=== PATIENT | male | born 1950 | race Caucasian/White ===

== ENCOUNTER → 2016-09-23 | Outpatient (CLI) | payer OTHER ==
[~2016-09-23] MED LIST: NAPR1TAB9 PO; TRAM-10 PO
--- NOTE | 2016-09-23 10:41 | DIAGNOSTIC IMAGING REPORT ---
HEAD CT NONCONTRAST CT DOSE: 614.27 mGy.cm HISTORY: R51 Headache Evaluate of Sub arachnoid [id number] TECHNIQUE: Multiaxial CT images of the head were performed without the use of intravenous contrast. Automated exposure control was utilized for this study. Comparison: None. Findings: Complete opacification of the visualized left maxillary sinus. There is partial opacification of the ethmoid air cells. The mastoid air cells are clear. The calvarium and skull base are intact. The ventricles and sulci are within normal limits. There is no mass, hematoma, midline shift, or acute infarct. Impression: No acute intracranial abnormality. Sinus disease as described above. Electronically signed by: Porter Flores M.D. 09/23/2016 10:39 AM
== END | disposition home or self-care (01) ==
LOC: C.CTS 10:19
PROVIDERS: ATTEND Nurse Practitioner Family
DX: R51 Headache (principal)

== ENCOUNTER → 2017-04-02 | Outpatient (CLI) | payer OTHER ==
--- NOTE | 2017-04-02 12:57 | DIAGNOSTIC IMAGING REPORT ---
ULTRASOUND EXAM AAA SCREEN CLINICAL HISTORY: 66 years-old Male presenting with tobacco use, aortic aneurysm screening. TECHNIQUE: Real-time grayscale and limited color Doppler ultrasound imaging of the abdominal aorta was performed through the level of the aortic bifurcation. COMPARISON: CT of the abdomen and pelvis from 11/02/2014. FINDINGS: Proximal aorta measures 1.9 x 1.9 cm. No significant atherosclerotic plaque. Mid aorta measures 1.7 x 1.7 cm. No significant atherosclerotic plaque. Distal aorta measures 1.6 x 1.8 cm. No significant atherosclerotic plaque. Bilateral common iliac arteries measures 0.9 cm in diameter. IMPRESSION: 1. No evidence of abdominal aortic aneurysm. Electronically signed by: Kar Estrella M.D. 04/02/2017 12:56 PM Dictated Date/Time: 04/02/2017 12:53 PM
== END | disposition home or self-care (01) ==
LOC: C.ULTR 11:38
PROVIDERS: ATTEND Family Medicine
DX: Z72.0 Tobacco use (principal)

== ENCOUNTER → 2017-07-19 | Outpatient (CLI) | payer OTHER | END | disposition home or self-care (01) | LOC: C.LAB1850 12:03 | PROVIDERS: ATTEND Urology | DX: C61 Malignant neoplasm of prostate (principal); C67.9 Malignant neoplasm of bladder, unspecified ==

== ENCOUNTER → 2018-01-12 | Outpatient (CLI) | payer OTHER ==
[~2018-01-12] MED LIST changes: +DOXE25CA2 PO
[2018-01-12 17:17] LABS: BASO % 0.6 %; BASO ABS # 0.06 K/uL (0-0.2); EOS % 4.1 %; EOS ABS # 0.38 K/uL (0-0.5); HEMATOCRIT 45.4 % (42-52); HEMOGLOBIN 15.7 g/dL (14.0-18.0); IG# 0.03 K/uL (0.00-0.02); LYMPH % 28.9 %; LYMPH ABS # 2.68 K/uL (1.2-3.4); MEAN CELL VOLUME 90.3 fL (80-100); MEAN CORPUSCULAR HEMOGLOBIN 31.2 pg (25-34); MEAN CORPUSCULAR HGB CONC 34.6 g/dl (32-36); MEAN PLATELET VOLUME 9.2 fL (7.4-10.4); MONO ABS # 0.83 K/uL (0.11-0.59); NEUT % 57.1 %; NEUT ABS # 5.28 K/uL (1.4-6.5); PLATELET COUNT 305 K/uL (130-400); RED CELL DISTRIBUTION WIDTH SD 42.5 fL (36.4-46.3); WHITE BLOOD COUNT 9.26 K/uL (4.8-10.8)
[2018-01-12 17:25] LABS: INR 0.9 (0.9-1.1)
[2018-01-12 19:13] LABS: ALBUMIN 3.8 gm/dl (3.4-5.0); ALT/SGPT 33 U/L (12-78); BLOOD UREA NITROGEN 19 mg/dl (7-18); CARBON DIOXIDE 27 mmol/L (21-32); CREATININE 0.98 mg/dl (0.60-1.40); GLUCOSE 84 mg/dl (70-99); SODIUM 138 mmol/L (136-145)
[2018-01-12 19:14] LABS: ALKALINE PHOSPHATASE 93 U/L (45-117); AST/SGOT 22 U/L (15-37); TOTAL PROTEIN 7.7 gm/dl (6.4-8.2)
== END | disposition home or self-care (01) ==
LOC: C.LAB1850 15:57
PROVIDERS: ATTEND Urology
DX: D69.2 Other nonthrombocytopenic purpura (principal); C67.9 Malignant neoplasm of bladder, unspecified

== ENCOUNTER 2018-01-14 09:10 | Emergency (ER) | payer OTHER ==
[~2018-01-14] VITALS: Ht 177.8 cm; Wt 74.5 kg
[~2018-01-14 09:10] MED LIST changes: -DOXE25CA2 PO
[2018-01-14 09:14] VITALS: TEMP 37; Ht 177.8 cm; Wt 74.5 kg
[2018-01-14] MEDS ORDERED: DOXE25CA2 PO (09:25)
--- NOTE | 2018-01-14 09:58 | EMERGENCY ROOM VISIT NOTE ---
History Report prepared by El: Haley Cantu Under the Supervision of: Dr. Darwin Ansari D.O. First contact with patient: 09:30 Chief Complaint: ARM PAIN Stated Complaint: L ARM PAIN,FAMILY HX OF HEART ATTACKS History of Present Illness The patient is a 67 year old male who presents to the Emergency Room with complaints of persistent left arm pain that began about an hour ago while he was on the computer. He reports that his pain worsens with movement, noting that it feels like a shooting pain near his elbow. The patient denies any chest pain or trouble breathing. He notes that he has been noticing some recent irritation around his wrists and arms which began about a week ago. Source of History: patient Onset: an hour ago Position: arm (left) Quality: other (arm pain) Timing: other (persistent) Associated Symptoms: No chest pain Note: Patient denies: trouble breathing. Review of Systems See HPI for pertinent positives & negatives. A total of 10 systems reviewed and were otherwise negative. Past Medical & Surgical Surgical Problems: (1) Hernia Family History Diabetes mellitus FH: heart attack Hypertension Social History Smoking Status: Current Every Day Smoker Smokeless Tobacco Use: Unknown Alcohol Use: none Drug Use: none Occupation Status: employed Current/Historical Medications Scheduled Doxepin Hcl (Sinequan), 25 MG PO HS Scheduled PRN Tramadol (Ultram), 50 MG PO Q6H PRN for Pain Allergies Coded Allergies: Iodinated Diagnostic Agents (Verified Allergy, Unknown, HIVES, 01/14/18) Physical Exam Vital Signs Date Time Temp Pulse Resp B/P (MAP) Pulse Ox O2 Delivery O2 Flow Rate FiO2 01/14/18 09:14 37.0 102 18 165/120 97 Room Air Physical Exam CONSTITUTIONAL/VITAL SIGNS: Reviewed / noted above. GENERAL: Non-toxic in appearance. INTEGUMENTARY: Warm, dry, and [place]. HEAD: Normocephalic. EYES: without scleral icterus or trauma. ENT/OROPHARYNX: clear and moist. LYMPHADENOPATHY/NECK: Is supple without lymphadenopathy or meningismus. RESPIRATORY: Lungs clear and equal. CARDIOVASCULAR: Regular rate and rhythm. GI/ABDOMEN: Soft and nontender. No organomegaly or pulsatile mass. No rebound or guarding. Normal bowel sounds. EXTREMITIES: Tenderness to palpation of the left anterior elbow, no redness, and no swelling. Increased pain with extension in that area. Neurovascularly intact distal to site of pain. No extremity edema. BACK: No CVA tenderness. NEUROLOGICAL: Intact without focal deficits. PSYCHIATRIC: normal affect. MUSCULOSKELETAL: Normally developed with good muscle tone. Medical Decision & Procedures ECG Per My Interpretation Indication: other (left arm pain) Rate (beats per minute): 96 Rhythm: normal sinus Findings: no ectopy, other (No ST elevations) ED Course 0935: Previous medical records were reviewed. The patient was evaluated in room A4. A complete history and physical examination was performed. Discussed test findings and treatment plan with him and he verbalized complete understanding and agreement. The patient will be discharged. Medical Decision Differential diagnosis: Etiologies such as fracture, dislocation, neurovascular compromise, compartment syndrome, soft tissue injury, as well as others were entertained. This is a 67-year-old male who presents to the ED with a chief complaint of left arm pain. The patient's arm pain started about 1 hour ago while he was on the computer. He states that his pain is primarily in the left elbow area. It is worse with movement and palpation of the area. He denies having any chest pains, shortness of breath, dizziness, neck pains or other symptoms. He does not recall any specific trauma to the area. The patient's vital signs reveal some hypertension. This will be referred to his PCP. He did see Jose M Stevens yesterday 2 days ago and had blood work done for another reason. His blood work was reviewed with him. His CBC was normal, chemistries were normal and coagulation studies were normal. The patient had an EKG today that shows a normal sinus rhythm at a rate of 96. His exam did not reveal any obvious abnormalities other than tenderness to palpation of the left antecubital fossa. He did also have some discomfort in that region with extension of his left arm. Distally he was neurovascularly intact. He has no edema. There is no erythema or increased warmth. There is no obvious swelling. Again this started 1 hour ago. The exact cause for symptoms is unclear. I do not suspect this to be cardiac in etiology. Recent trauma or strain or possibly early infection is possible but this is not evident on exam at this time. The patient was advised to monitor symptoms and to follow-up or return for worsening or new symptoms if they develop. He was advised to use Tylenol or Motrin for pain. Medication Reconcilliation Current Medication List: was personally reviewed by me Blood Pressure Screening Patient's blood pressure: Elevated blood pressure Blood pressure disposition: Referred to PCP Impression Primary Impression: Arm pain, left Scribe Attestation The scribe's documentation has been prepared under my direction and personally reviewed by me in its entirety. I confirm that the note above accurately reflects all work, treatment, procedures, and medical decision making performed by me. Departure Information Dispostion Home / Self-Care Referrals Ronit Ramirez MD (PCP) Forms HOME CARE DOCUMENTATION FORM, IMPORTANT VISIT INFORMATION Patient Instructions My [facility] Additional Instructions Your EKG today was normal. Your blood work from 2 days ago was normal as well. The exact etiology of your symptoms today are unclear. Monitor your symptoms and should he develop increasing pain, swelling, redness or other symptoms, have your symptoms recheck by your doctor or here. Your blood pressure today was elevated. Have this rechecked by her doctor.
[2018-01-14 10:14] VITALS: BP 168/88; PULSE 70; O2SAT 99
== END 2018-01-14 10:14 | disposition home or self-care (01) ==
LOC: C.EDB 09:11 → C.EDA 10:14
DX: M79.602 Pain in left arm (principal); F17.210 Nicotine dependence, cigarettes, uncomplicated; Z79.899 Other long term (current) drug therapy; Z91.041 Radiographic dye allergy status